=== PATIENT | female | born 2000 | race African-American/Black ===

== ENCOUNTER 2020-02-16 17:29 | Emergency (ER) | payer OTHER ==
[~2020-02-16] VITALS: Ht 162.6 cm; Wt 52.2 kg
[2020-02-16 18:24] LABS: URINE BILIRUBIN NEGATIVE (Negative); URINE BLOOD NEGATIVE (Negative); URINE CLARITY CLEAR; URINE COLOR YELLOW; URINE GLUCOSE-RANDOM NEGATIVE (Negative); URINE KETONES NEGATIVE (Negative); URINE LEUKOCYTES-REFLEX NEGATIVE (Negative); URINE NITRITE-REFLEX NEGATIVE (Negative); URINE PROTEIN NEGATIVE (Negative); URINE UROBILINOGEN 0.2 E.U./dl (0.2-1.0)
[2020-02-16 18:39] LABS: ABSOLUTE BASOPHILS 0.1 thou/uL (0.0-0.2); ABSOLUTE EOSINOPHILS 0.2 thou/uL (0.0-0.7); ABSOLUTE LYMPHOCYTES 2.4 thou/uL (0.8-5.3); ABSOLUTE MONOCYTES 0.7 thou/uL (0.0-1.2); ABSOLUTE NEUTROPHILS 5.8 thou/uL (1.6-8.1); BASOPHILS 0.6 %; EOSINOPHILS 2.6 %; HEMATOCRIT 37.8 % (37.0-47.0); LYMPHOCYTES 26.1 %; MCH 29.3 pg (26.0-34.0); MCHC 34.5 g/dL (28.0-37.0); MCV 85.1 fL (80.0-100.0); MONOCYTES 7.5 %; MPV 8.5 fl. (7.2-11.1); NUCLEATED RBCS 0 /100WBC; PLATELET COUNT* 233 thou/uL (150-400); POLYS 63.2 %; RBC 4.44 mil/uL (4.20-5.00); RDW-CV 12.4 % (10.5-14.5); WBC 9.3 thou/uL (4.0-11.0)
[2020-02-16 19:13] LABS: CREATININE 0.8 mg/dL (0.6-1.3)
[2020-02-16 19:18] LABS: ALBUMIN 3.7 g/dL (3.4-5.0); TOTAL BILIRUBIN 0.6 mg/dL (<0.1-1.0)
[2020-02-16] MEDS ORDERED: TRINATE TABLET1 EACH PO (21:10)
[2020-02-16 21:18] VITALS: BP 108/62
== END 2020-02-16 21:18 | disposition home or self-care (01) ==
LOC: M.ERS 17:29
PROVIDERS: Nurse Practitioner Family
DX: O26.891 Other specified pregnancy related conditions, first trimester (principal); N83.201 Unspecified ovarian cyst, right side; Z3A.01 Less than 8 weeks gestation of pregnancy

== ENCOUNTER 2020-02-19 14:03 | Emergency (ER) | payer OTHER ==
[~2020-02-19] VITALS: Ht 160 cm; Wt 52.2 kg
[~2020-02-19 14:03] MED LIST: TRINATE TABLET1 EACH PO
[2020-02-19 14:39] LABS: ABSOLUTE EOSINOPHILS 0.1 thou/uL (0.0-0.7); ABSOLUTE LYMPHOCYTES 1.8 thou/uL (0.8-5.3); ABSOLUTE MONOCYTES 0.7 thou/uL (0.0-1.2); ABSOLUTE NEUTROPHILS 5.2 thou/uL (1.6-8.1); BASOPHILS 0.6 %; EOSINOPHILS 1.8 %; HEMATOCRIT 38.7 % (37.0-47.0); HEMOGLOBIN 13.8 gm/dL (12.0-15.0); LYMPHOCYTES 22.9 %; MCH 29.9 pg (26.0-34.0); MCHC 35.7 g/dL (28.0-37.0); MCV 83.9 fL (80.0-100.0); MONOCYTES 9.1 %; MPV 8.2 fl. (7.2-11.1); NUCLEATED RBCS 0 /100WBC; PLATELET COUNT* 221 thou/uL (150-400); POLYS 65.6 %; RBC 4.62 mil/uL (4.20-5.00); RDW-CV 12.4 % (10.5-14.5); WBC 7.9 thou/uL (4.0-11.0)
[2020-02-19 14:55] LABS: POTASSIUM 3.9 mmol/L (3.5-5.1)
[2020-02-19 14:56] LABS: URINE BILIRUBIN NEGATIVE (Negative); URINE BLOOD NEGATIVE (Negative); URINE CLARITY CLEAR; URINE COLOR YELLOW; URINE GLUCOSE-RANDOM NEGATIVE (Negative); URINE KETONES TRACE (Negative); URINE LEUKOCYTES-REFLEX NEGATIVE (Negative); URINE NITRITE-REFLEX NEGATIVE (Negative); URINE PROTEIN NEGATIVE (Negative)
[2020-02-19 14:57] LABS: ALBUMIN 3.5 g/dL (3.4-5.0)
[2020-02-19 15:17] LABS: CALCIUM 9.1 mg/dL (8.5-10.1); CREATININE 0.6 mg/dL (0.6-1.3)
[2020-02-19 15:22] LABS: TOTAL PROTEIN 7.1 g/dL (6.4-8.2)
[2020-02-19] MEDS ORDERED: DICLEGIS DR 101 EACH PO ×2 (17:16→17:27)
[2020-02-19 17:37] VITALS: BP 96/54
== END 2020-02-19 17:38 | disposition home or self-care (01) ==
LOC: M.ERS 14:03
PROVIDERS: Physician Assistant
DX: O20.0 Threatened abortion (principal); Z3A.01 Less than 8 weeks gestation of pregnancy